=== PATIENT | male | born 1980 | race Native Hawaiian/Other Pacific Islander ===

== ENCOUNTER 2020-04-25 09:29 | Outpatient (CLI) | payer OTHER | END 2020-04-25 20:39 | disposition home or self-care (01) | LOC: RAD 09:29 | PROVIDERS: ATTEND Nurse Practitioner Family | DX: J20.9 Acute bronchitis, unspecified (principal) ==

== ENCOUNTER 2020-05-06 09:00 | Outpatient (CLI) | payer OTHER | END 2020-05-06 19:16 | disposition home or self-care (01) | LOC: RAD 09:00 | PROVIDERS: ATTEND Family Medicine | DX: R60.0 Localized edema (principal) ==

== ENCOUNTER 2020-05-08 16:36 | Inpatient (IN) | payer OTHER ==
[~2020-05-08] VITALS: Ht 182.9 cm; Wt 146.3 kg
[2020-05-08 17:55] LABS: PLATELET COUNT 244 K/uL (142-355)
[2020-05-08] MEDS ORDERED: CEPHALEXIN500 MG PO (18:14)
[2020-05-08] MEDS ORDERED: CLIN300C PO (18:14)
[2020-05-08] MEDS ORDERED: DOXYCYCL HYC100 M2 PO (18:16)
[2020-05-08] MEDS ORDERED: ETHOSUXIMIDE250 MG PO (18:16)
[2020-05-08] MEDS ORDERED: EUTHYROX25 MCG PO (18:17)
[2020-05-08 18:19] LABS: POTASSIUM 3.7 mmol/L (3.6-5.2); SODIUM 139 mmol/L (136-145)
[2020-05-08 18:22] LABS: PARTIAL THROMBOPLASTIN TIME 25.3 SECONDS (24.5-33.6)
[2020-05-08 20:00] VITALS: BP 140/87; TEMP 97.7
[2020-05-08 20:23] VITALS: BP 146/90; TEMP 98.6; Ht 182.9 cm; Wt 146.3 kg
[2020-05-08 23:59] VITALS: BP 133/81; TEMP 100
[2020-05-09 03:46] VITALS: BP 128/77; TEMP 99.2
[2020-05-09 05:52] LABS: PLATELET COUNT 206 K/uL (142-355)
[2020-05-09 06:01] LABS: POTASSIUM 4.2 mmol/L (3.6-5.2)
[2020-05-09 08:00] VITALS: BP 122/77; TEMP 98.1
[2020-05-09 12:00] VITALS: BP 123/66; TEMP 98.1
[2020-05-09 16:00] VITALS: BP 113/71; TEMP 99.7
[2020-05-09 20:00] VITALS: BP 114/73; TEMP 98.9
[2020-05-10 00:10] VITALS: BP 117/70; TEMP 100.3
[2020-05-10 04:25] VITALS: BP 109/72; TEMP 98.2
[2020-05-10 05:46] LABS: PLATELET COUNT 213 K/uL (142-355)
[2020-05-10 05:57] LABS: POTASSIUM 4.2 mmol/L (3.6-5.2)
[2020-05-10 08:00] VITALS: BP 146/95; TEMP 98.3
[2020-05-10 12:00] VITALS: BP 136/90; TEMP 98.6
[2020-05-10 16:10] VITALS: BP 155/102; TEMP 98.6
[2020-05-10 20:00] VITALS: BP 139/90; TEMP 99.1
[2020-05-11] VITALS: BP 142/90; TEMP 99
[2020-05-11 04:00] VITALS: BP 104/66; TEMP 98
[2020-05-11 05:49] LABS: PLATELET COUNT 244 K/uL (142-355)
[2020-05-11 05:59] LABS: POTASSIUM 4.5 mmol/L (3.6-5.2)
[2020-05-11 07:38] VITALS: BP 95/68; TEMP 98.5
[2020-05-11 11:29] VITALS: BP 122/77; TEMP 98.9
[2020-05-11 16:00] VITALS: BP 136/83; TEMP 98.4
[2020-05-11 20:00] VITALS: BP 150/69; TEMP 99
[2020-05-12] VITALS: BP 149/91; TEMP 99.4
[2020-05-12 04:00] VITALS: BP 132/66; TEMP 98.6
[2020-05-12 08:04] VITALS: BP 127/84; TEMP 98.6
[2020-05-12 08:05] LABS: PLATELET COUNT 255 K/uL (142-355)
[2020-05-12 08:33] LABS: POTASSIUM 4.4 mmol/L (3.6-5.2)
[2020-05-12 12:00] VITALS: BP 131/92; TEMP 98.2
[2020-05-12 16:00] VITALS: BP 144/88; TEMP 98.4
== END 2020-05-12 18:00 | disposition home or self-care (01) | DRG 300 ==
LOC: MED/SURG 16:36
PROVIDERS: ADMIT Family Medicine; ATTEND Family Medicine
DX: I82.4Z1 Acute embolism and thrombosis of unspecified deep veins of right distal lower extremity (principal); Z68.42 Body mass index [BMI] 45.0-49.9, adult; G40.802 Other epilepsy, not intractable, without status epilepticus; L03.115 Cellulitis of right lower limb; A46 Erysipelas; E66.8 Other obesity; Z71.3 Dietary counseling and surveillance; I73.89 Other specified peripheral vascular diseases; R60.0 Localized edema
CPT/HCPCS: 36415; 80053; 81000; 82550; 83735; 84100; 84484; 85027; 85379; 85610; 85730; 87040; 96365; 96367; J2543

== ENCOUNTER 2021-05-28 11:56 | Outpatient (CLI) | payer OTHER ==
[~2021-05-28 11:56] MED LIST: CEPHALEXIN500 MG PO; CLIN300C PO; DOXYCYCL HYC100 M2 PO; ETHOSUXIMIDE250 MG PO; EUTHYROX25 MCG PO
== END 2021-05-28 19:22 | disposition home or self-care (01) ==
LOC: US 11:56
PROVIDERS: ATTEND Nurse Practitioner Primary Care
DX: R60.0 Localized edema (principal)

== ENCOUNTER 2021-11-19 12:29 | Outpatient (CLI) | payer OTHER | END 2021-11-19 20:02 | disposition home or self-care (01) | LOC: US 12:29 | PROVIDERS: ATTEND Nurse Practitioner Family | DX: R60.0 Localized edema (principal) ==

== ENCOUNTER 2022-08-20 13:40 | Observation (INO) | payer OTHER ==
[~2022-08-20] VITALS: Ht 182.9 cm; Wt 156.2 kg
[2022-08-20 13:45] VITALS: BP 161/87; TEMP 99
[2022-08-20 14:16] LABS: PLATELET COUNT 227 K/uL (142-355)
[2022-08-20 14:36] LABS: POTASSIUM 3.9 mmol/L (3.6-5.2)
[2022-08-20 17:45] VITALS: BP 142/91; TEMP 99.3
[2022-08-20 18:20] VITALS: BP 142/91; TEMP 99.3; Ht 182.9 cm; Wt 156.2 kg
[2022-08-20] MEDS ORDERED: EUTHYROX75 MCG PO (19:16)
[2022-08-20] MEDS ORDERED: GABA100C2 PO (19:17)
[2022-08-20] MEDS ORDERED: TRAZ50TA36 PO (19:18)
[2022-08-20] MEDS ORDERED: LISI5TAB10 PO (19:18)
[2022-08-20] MEDS ORDERED: MULTIVITAMIN1 TA1 PO (19:19)
[2022-08-20] MEDS ORDERED: ASPIRIN/ENTERIC81 MG PO (19:19)
[2022-08-20 19:53] VITALS: BP 163/97; TEMP 98.7
[2022-08-20 23:46] VITALS: BP 169/82; TEMP 98.7
[2022-08-21 04:00] VITALS: BP 131/76; TEMP 98.3
[2022-08-21 07:30] LABS: PLATELET COUNT 208 K/uL (142-355)
[2022-08-21 08:00] VITALS: BP 126/78; TEMP 98.1
[2022-08-21 12:00] VITALS: BP 130/65; TEMP 97.7
[2022-08-21] MEDS ORDERED: CLINDAMYCIN HY300 MG PO (14:51)
== END 2022-08-21 15:15 | disposition home or self-care (01) ==
LOC: ED 13:40 → MED/SURG 15:57
PROVIDERS: Family Medicine; ADMIT Internal Medicine; ATTEND Internal Medicine
DX: I80.01 Phlebitis and thrombophlebitis of superficial vessels of right lower extremity (principal); D72.828 Other elevated white blood cell count; M79.661 Pain in right lower leg; I10 Essential (primary) hypertension; E03.8 Other specified hypothyroidism; G40.909 Epilepsy, unspecified, not intractable, without status epilepticus; F32.A Depression, unspecified
CPT/HCPCS: 36415; 80053; 85027; 85379; 85610; 86140; 87040; 87077; 87185; 87205; 93005; 94664; 94760; 96367; 96374; 96375; 96376; 99221; 99284; G0378; J1650; J2543; J2920; J3490